=== PATIENT | male | born 1935 | race Caucasian/White ===

== ENCOUNTER 2017-07-13 21:49 | Emergency (ER) | payer BC ==
[2017-07-13 22:01] VITALS: BP 137/80
--- NOTE | 2017-07-13 22:02 | UC ---
Skin Complaint HPI - HPI Summary HPI Summary: sore area at the back of the head / scalp no rash, no lesions no hx of trauma - History of Current Complaint Chief Complaint: UCHeadInjury Time Seen by Provider: 07/13/17 21:50 Stated Complaint: PAIN IN BACK OF HEAD Hx Obtained From: Patient Onset/Duration: Gradual Onset, Lasting Days - 2, Still Present Timing: Constant Onset Severity: Moderate Current Severity: Moderate Location: Discrete - left posterior scalp Character: Pain Aggravating Factor(s): Touch Alleviating Factor(s): Nothing Associated Signs & Symptoms: Positive: Negative - Allergy/Home Medications Allergies/Adverse Reactions: Allergies Allergy/AdvReac Type Severity Reaction Status Date / Time Penicillins Allergy Severe Constipatio Verified 07/13/17 22:01 n Levofloxacin [From Levaquin] Allergy Itching Verified 07/13/17 22:01 Home Medications: Home Medications Ramipril CAP* [Altace CAP*] 5 mg PO DAILY 07/13/17 [History Confirmed 07/13/17] Review of Systems Constitutional: Negative Skin: Negative Eyes: Negative ENT: Negative Respiratory: Negative Cardiovascular: Negative Gastrointestinal: Negative Genitourinary: Negative Motor: Negative Neurovascular: Negative Musculoskeletal: Negative Neurological: Negative Psychological: Negative Is Patient Immunocompromised?: No All Other Systems Reviewed And Are Negative: Yes PMH/Surg Hx/FS Hx/Imm Hx Cardiovascular History: Hypertension - Surgical History Surgical History: Yes Surgery Procedure, Year, and Place: hernia repair 1956. 2013 LEFT SHOULDER ROTATOR REPAIR. 02/2016 [facility],RIGHT STENT [facility] - Family History Known Family History: Positive: None Negative: Diabetes - Social History Alcohol Use: None Substance Use Type: None Smoking Status (MU): Former Smoker Type: Cigarettes Have You Smoked in the Last Year: No When Did the Patient Quit Smoking/Using Tobacco: 1998 - Immunization History Most Recent Influenza Vaccination: no Physical Exam Triage Information Reviewed: Yes Appearance: Well-Appearing, No Pain Distress, Well-Nourished Vital Signs: Initial Vital Signs Temp 96.9 F 07/13/17 21:56 Pulse 57 07/13/17 21:56 Resp 16 07/13/17 21:56 BP 137/80 07/13/17 21:56 Pulse Ox 99 07/13/17 21:56 Vital Signs Reviewed: Yes Eyes: Positive: Conjunctiva Clear ENT: Positive: Normal ENT inspection, Hearing grossly normal, Pharynx normal Neck exam: Normal Neck: Positive: Supple, Nontender, No Lymphadenopathy Respiratory: Positive: Chest non-tender, Lungs clear, Normal breath sounds Cardiovascular: Positive: RRR, No Murmur, Pulses Normal Abdominal Exam: Normal Skin Exam: Normal Skin: Positive: Other - scalp: no rash, no lesion, mild tenderness left posterior scalp Course/Dx - Diagnoses Provider Diagnoses: scalp pain Discharge - Discharge Plan Condition: Stable Disposition: HOME Referrals: Kenna Almonte MD [Primary Care Provider] - If Needed Additional Instructions: sore area at the back of the head / scalp no rash, no lesions no hx of trauma cont. to monitor the area follow up if and sores, lesions, rash
== END 2017-07-13 22:12 | disposition home or self-care (01) ==
LOC: UCCORT 21:49
DX: L98.9 Disorder of the skin and subcutaneous tissue, unspecified (principal); Z88.0 Allergy status to penicillin; Z88.8 Allergy status to other drugs, medicaments and biological substances; I10 Essential (primary) hypertension; Z87.891 Personal history of nicotine dependence
CPT/HCPCS: 99212; G0463

== ENCOUNTER 2017-10-23 17:38 | Emergency (ER) | payer BC ==
[2017-10-23 18:44] VITALS: BP 122/69
--- NOTE | 2017-10-23 18:48 | UC ---
Respiratory Complaint HPI - HPI Summary HPI Summary: 82 year old male presents with complains of cough x 1 month. - History of Current Complaint Chief Complaint: UCRespiratory Stated Complaint: COUGH Time Seen by Provider: 10/23/17 18:47 Hx Obtained From: Patient Onset/Duration: Sudden Onset Severity Initially: Moderate Severity Currently: Moderate Pain Scale Used: 0-10 Numeric - 5 Character: Cough: Nonproductive Associated Signs And Symptoms: Positive: Negative - Allergies/Home Medications Allergies/Adverse Reactions: Allergies Allergy/AdvReac Type Severity Reaction Status Date / Time Penicillins Allergy Severe Constipatio Verified 10/23/17 18:44 n Levofloxacin [From Levaquin] Allergy Itching Verified 10/23/17 18:44 Home Medications: Home Medications Arginine [[id number]] 500 mg PO DAILY 10/23/17 [History Confirmed 10/23/17] Edex 40 mg PO DAILY PRN 10/23/17 [History] Longevity Soft Gels 1 tab PO DAILY 10/23/17 [History Confirmed 10/23/17] Misc Natural Products [Prostate Health] 1 tab PO DAILY 10/23/17 [History Confirmed 10/23/17] Potassium Citrate (Alkalinizer [Potassium Citrate ER] 10 meq PO TID 10/23/17 [ History Confirmed 10/23/17] Prune Regularity Complex 1 tbsp PO DAILY 10/23/17 [History Confirmed 10/23/17] PMH/Surg Hx/FS Hx/Imm Hx Previously Healthy: Yes - Surgical History Surgical History: Yes Surgery Procedure, Year, and Place: hernia repair 1956. 2013 LEFT SHOULDER ROTATOR REPAIR. 02/2016 [facility]RIGHT STENT [facility] - Family History Known Family History: Positive: None Negative: Diabetes - Social History Alcohol Use: None Substance Use Type: None Smoking Status (MU): Former Smoker Type: Cigarettes Have You Smoked in the Last Year: No When Did the Patient Quit Smoking/Using Tobacco: 1998 - Immunization History Most Recent Influenza Vaccination: NOT UTD Most Recent Pneumonia Vaccination: Review of Systems Constitutional: Negative Skin: Negative Eyes: Negative ENT: Sore Throat, Nasal Discharge, Sinus Congestion, Sinus Pain/Tenderness Respiratory: Cough Cardiovascular: Negative Gastrointestinal: Negative Genitourinary: Negative Motor: Negative Neurovascular: Negative Musculoskeletal: Negative Neurological: Negative Psychological: Negative All Other Systems Reviewed And Are Negative: Yes Physical Exam Triage Information Reviewed: Yes Vital Signs: Initial Vital Signs Temp 36.9 C 10/23/17 18:37 Pulse 80 10/23/17 18:37 Resp 16 10/23/17 18:37 BP 122/69 10/23/17 18:37 Pulse Ox 97 10/23/17 18:37 Vital Signs Reviewed: Yes Eye Exam: Normal ENT: Positive: Pharyngeal erythema, Nasal congestion, Nasal drainage, Sinus tenderness Dental Exam: Normal Neck exam: Normal Neck: Positive: 1 Respiratory: Positive: Rhonchi, Wheezing Cardiovascular Exam: Normal Abdominal Exam: Normal Musculoskeletal Exam: Normal Neurological Exam: Normal Psychological Exam: Normal Skin Exam: Normal Diagnostic Evaluation - Laboratory O2 Sat by Pulse Oximetry: 97 Respiratory Course/Dx - Differential Dx/Diagnosis Provider Diagnoses: pneumonia Discharge - Discharge Plan Condition: Stable Disposition: HOME Prescriptions: Albuterol HFA INHALER* [Ventolin HFA Inhaler*] 1 puff INH Q6H PRN #1 mdi PRN Reason: Wheezing Azithromyxin YOLIS (NF) [Z-Yolis (Zithromax) 250 mg tabs #6] 2 tab PO .TODAY, THEN 1 DAILY #6 tab Guaifenesin-Codeine [Cheratussin AC] 1 teasp PO BEDTIME PRN #120 ml MDD 5 ML PRN Reason: Cough LoraTADine TAB(NF) [Claritin 10 MG TAB(NF)] 10 mg PO DAILY #30 tab Patient Education Materials: Pneumonia (ED) Forms: *Work Release Referrals: Kenna Almonte MD [Primary Care Provider] -
--- NOTE | 2017-10-23 19:33 | RAD ---
INDICATION: Cough. COMPARISON: Comparison is made with a prior chest x-ray study study from August 26, 2005. TECHNIQUE: Dual-energy PA and lateral views of the chest were obtained. FINDINGS: The heart is within normal limits in size. The lungs are slightly underinflated. There are small infiltrates at both lung bases. The infiltrate on the left side is mainly linear. No pleural effusion is seen. IMPRESSION: SMALL BIBASILAR INFILTRATES.
[2017-10-23] MEDS ORDERED: Azithromycin TAB* 250 MG PO ONE (19:41)
[2017-10-23] MEDS ORDERED: LoraTADine TAB(NF) 10 MG TAB (AUTOSUB to CETIRIZINE) PO ONE (19:42)
[2017-10-23] MEDS ORDERED: guaiFENesin/CODIEN 100MG-10MG* 5 ML UDC PO ONE (19:42)
[2017-10-23] MEDS ORDERED: Albuterol HFA INHALER* 8 gm MDI INH ONE (19:51)
== END 2017-10-23 19:59 | disposition home or self-care (01) ==
LOC: UCCORT 17:38
DX: J18.9 Pneumonia, unspecified organism (principal); Z88.0 Allergy status to penicillin; Z88.1 Allergy status to other antibiotic agents; Z87.891 Personal history of nicotine dependence
CPT/HCPCS: 71046; 99213; A9270-GY; G0463

== ENCOUNTER 2018-01-03 17:26 | Emergency (ER) | payer BC ==
[2018-01-03 18:39] VITALS: BP 135/65
--- NOTE | 2018-01-03 18:53 | ED ---
Adult Trauma - HPI Summary HPI Summary: 82 yr old fall on buttocks two weeks ago. Has persistent pain in the left upper pelvis, SI area when goes from sitting to standing. He denies LOC or other injuries. No other complaints. - History of Current Complaint Chief Complaint: UCGeneralIllness Stated Complaint: LOW BACK/PELVIC PAIN Time Seen by Provider: 01/03/18 18:30 Pain Intensity: 0 - Additional Pertinent History Primary Care Physician: EDILSON - Allergy/Home Medications Allergies/Adverse Reactions: Allergies Allergy/AdvReac Type Severity Reaction Status Date / Time Penicillins Allergy Severe Constipatio Verified 01/03/18 18:25 n levofloxacin [From Levaquin] Allergy Itching Verified 01/03/18 18:25 PMH/Surg Hx/FS Hx/Imm Hx Endocrine/Hematology History: Denies: Hx Diabetes, Hx Thyroid Disease Cardiovascular History: Reports: Hx Hypertension Respiratory History: Reports: Hx Sleep Apnea Denies: Hx Asthma, Hx Chronic Obstructive Pulmonary Disease (COPD) GI History: Denies: Hx Ulcer History: Reports: Hx Kidney Stones - right side Musculoskeletal History: Reports: Hx Arthritis - NECK/ SHOULDERS, Other Musculoskeletal History - SPINAL STENOSIS Sensory History: Reports: Hx Contacts or Glasses - READING, Hx Hearing Aid - BILAT Opthamlomology History: Reports: Hx Contacts or Glasses - READING Neurological History: Reports: Hx Migraine - INFREQ, ON MEDS - Surgical History Surgery Procedure, Year, and Place: hernia repair 1956. 2013 LEFT SHOULDER ROTATOR REPAIR. 02/2016 [facility]RIGHT STENT [facility] Hx Anesthesia Reactions: No Infectious Disease History: No Infectious Disease History: Denies: Hx Hepatitis, Hx Human Immunodeficiency Virus (HIV), Traveled Outside the [place] in Last 30 Days - Family History Known Family History: Positive: None Negative: Diabetes - Social History Alcohol Use: None Substance Use Type: Reports: None Smoking Status (MU): Former Smoker Type: Cigarettes Have You Smoked in the Last Year: No Review of Systems Constitutional: Negative Positive: Other - pain left pelvis posteriorly. Negative: Headache, Weakness, Numbness All Other Systems Reviewed And Are Negative: Yes Physical Exam - Summary Physical Exam Summary: Palpation of the CTL spine non tender. He has some tenderness over the sacral area/SI area on the left. No bruise. No STS. Triage Information Reviewed: Yes Vital Signs On Initial Exam: Initial Vitals Temp Pulse Resp BP Pulse Ox 98.3 F 63 16 135/65 98 18 18:27 01/03/18 18:27 01/03/18 18:27 01/03/18 18:27 01/03/18 18:27 Vital Signs Reviewed: Yes Appearance: Positive: Well-Appearing, No Pain Distress Skin: Positive: Warm, Skin Color Reflects Adequate Perfusion, Other - back side visualized and no bruise over buttock or back area. Head/Face: Positive: Normal Head/Face Inspection Eyes: Positive: EOMI ENT: Positive: Normal ENT inspection Neck: Positive: Supple Respiratory/Lung Sounds: Positive: Other - normal effort Abdomen Description: Negative: CVA Tenderness (R), CVA Tenderness (L), Distended Musculoskeletal: Positive: Normal, Strength/ROM Intact, Other - tender over the left SI area and sacral/ Pelvis area. Neurological: Positive: Sensory/Motor Intact, Alert, Oriented to Person Place, Time, CN Intact II-III, Normal Gait, Speech Normal Psychiatric: Positive: Normal - Lawrence Coma Scale Best Eye Response: 4 - Spontaneous Best Motor Response: 6 - Obeys Commands Best Verbal Response: 5 - Oriented Coma Scale Total: 15 Diagnostics - Vital Signs Vital Signs Temp Pulse Resp BP Pulse Ox 01/03/18 18:27 98.3 F 63 16 135/65 98 - Laboratory Lab Statement: Any lab studies that have been ordered have been reviewed, and results considered in the medical decision making process. - Radiology pelvis and Sacral Xray Interpretation: No Acute Changes Radiology Interpretation Completed By: Radiologist Adult Trauma Course/Dx - Course Course Of Treatment: 82 yr old male who walks very well. Plan dc home. FU with ortho for further eval as needed. - Diagnoses Provider Diagnoses: Contusion of pelvis Discharge - Discharge Plan Condition: Good Disposition: HOME Patient Education Materials: Contusion in Adults (ED) Referrals: Kenna Almonte MD [Primary Care Provider] - 2 Days Vidal Anderson MD [Medical Doctor] - 2 Days Additional Instructions: Be sure to follow up with your primary doctor and with orthopedic surgery if you have continued pain. You may need a bone scan if you have persistent pain to rule out a small break not seen on xray.
--- NOTE | 2018-01-03 19:17 | RAD ---
INDICATION: Fall 2 weeks ago. COMPARISON: [facility] April 13, 2017 TECHNIQUE: AP and lateral views of the coccyx and sacrum were obtained FINDINGS: There is no acute bony change. 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 The SI joints and symphysis are intact IMPRESSION: NO ACUTE BONY FINDINGS. OSTEOARTHRITIS LOWER LUMBAR SPINE.
--- NOTE | 2018-01-03 19:19 | RAD ---
INDICATION: Pelvic pain COMPARISON: [facility] April 13, 2017 TECHNIQUE: A single AP view of the pelvis is submitted. FINDINGS: Osseous structures: There is no acute osseous change. The hips articulate normally. There is osteoarthritis of the lower lumbar spine SI joints and symphysis: Intact Soft tissues: No soft tissue abnormalities. Other: None IMPRESSION: NO ACUTE BONY FINDINGS.
== END 2018-01-03 19:32 | disposition home or self-care (01) ==
LOC: UCCORT 17:26
DX: S30.0XXA Contusion of lower back and pelvis, initial encounter (principal); W19.XXXA Unspecified fall, initial encounter; Y93.9 Activity, unspecified; Y92.9 Unspecified place or not applicable; Z88.1 Allergy status to other antibiotic agents; Z88.0 Allergy status to penicillin; Z87.891 Personal history of nicotine dependence
CPT/HCPCS: 72170; 72220; 99211; G0463

== ENCOUNTER 2019-11-12 09:55 | Emergency (ER) | payer BC ==
--- OUTSIDE RECORDS SUMMARY | 2019-11-12 10:44 | XMS REPORT | Continuity of Care Document ---
:1935 External Reference #:[id number] Author Name Kenna Almonte MD Address [address] [place] [address] Care Team Providers Name Role Phone [facility] X-Ray Care Team Information Ore Tester [phone] Gage Dickey - Cardiovascular Care Team Information Ore Tester Disease Travon Handy DR - Ophthalmology Care Team Information Ore Tester [phone] Renard Villatoro Care Team Information Ore Tester [phone] Farzana Dietz - Gastroenterology Care Team Information Ore Tester [phone] Problems Active Problems Provider Date Refractory migraine without aura Kenna Almonte MD Onset: 08/05/2010 Obstructive sleep apnea syndrome Kenna Almonte MD Onset: 08/05/2010 Impotence of organic origin Kenna Almonte MD Onset: 08/05/2010 Aneurysm of thoracic aorta Kenna Almonte MD Onset: 08/16/2015 Aortic valve disorder Kenna Almonte MD Onset: 01/31/2016 Essential hypertension Kenna Almonte MD Onset: 10/16/2016 Right bundle branch block Kenna Almonte MD Onset: 05/12/2017 Chronic kidney disease stage 3 Kenna Almonte MD Onset: 06/22/2018 Hypokalemia Kenna Almonte MD Onset: 08/16/2018 Social History Type Date Description Comments Sex Unknown Tobacco Use Start: Unknown End: Unknown Former Cigarette Smoker Smoking Status Reviewed: 12/20/18 Former Cigarette Smoker ETOH Use Denies alcohol use Tobacco Use Start: Unknown End: Unknown Patient is a former smoker Allergies, Adverse Reactions, Alerts Active Allergies Reaction Severity Comments Date Penicillin 08/05/2010 Levofloxacin iv use itching 05/12/2017 Medications Active Medications SIG Qnty Indications Ordering Provider Date Acetaminophen 1-2 by mouth otc M25.531 Kenna Almonte, 10/03/2019 500mg every 6 hrs. as MD Tablets needed for arthritis pain M25.552 M25.551 Topiramate 1 by mouth twice a 180tabs G43.019 Kenna Almonte, 08/16/2018 50mg Tablets day Edex Use Three Times A 3units N52.9 Kenna Almonte, 04/25/2018 40mcg Kit Week If Needed Ramipril 1 by mouth every 90caps I10 Kenna Almonte, 09/16/2016 5mg Capsules day Cpap Supplies including mask, G47.33 Kenna Almonet, 09/02/2016 tubing, headgear and filters. Fish Oil Kenna Almonte, 08/05/2010 Oil Glucosamine/Chondroiti 1 po qd Kenna Almonte, 08/05/2010 n Maximum Strength MD Capsules Aspirin Adult Low 1 by mouth every 30Tabs eKnna Almonte, 08/05/2010 Strength day 81mg Tablets Sumatriptan Succinate 1 every day as 9tabs G43.019 Kenna Almonte, 2009 needed migraine 100mg Tablets repeat 2 hours as needed Potassium Citrate ER 1 by mouth tHREE a E87.6 Srinivasan Richmond, day 10Meq (1080 mg) Tablets ER L-Arginine 1 cap PO daily Unknown 500mg Capsules Longevity 1 cap PO daily Unknown Capsules Multivitamin Men 50+ 1 by mouth daily Unknown Men with meal 50+ Tablets History Medications Clotrimazole wash with mild 28gm B37.42 Amy Sharma, 05/02/2019 - Anti-Fungal soap and blot 07/03/2019 1% Cream dry then apply cream to penile rash twice daily for up to 2 weeks Immunizations CPT Code Status Date Vaccine Lot # [id number] Given 10/12/2014 Zoster (Zostavax) [id number] Given 04/02/2009 Tdap (Adacel) Ages 7 And Above Only [id number] Refused 07/04/2019 Flu Vaccine NOS 67966 Refused 06/22/2018 Afluria Or Fluvirin Flu Vac Intramuscular 98929 Refused 12/16/2017 Afluria Or Fluvirin Flu Vac Intramuscular Q2039 Refused 11/17/2016 Flu Vaccine NOS 65428 Refused 01/31/2016 Prevnar 13 Pneumococal Conjugate Vaccine 30799 Refused 03/20/2014 Pneumococcal 23 Immunization Adult Or Immunosuppressed Patient 89695 Refused 11/07/2012 Pneumococcal 23 Immunization Adult Or Immunosuppressed Patient 96960 Refused 11/07/2012 Afluria Or Fluvirin Flu Vac Intramuscular Vital Signs Date Vital Result Comment 10/03/2019 10:41am Weight 175.00 lb Heart Rate 78 /min BP Systolic 130 mmHg BP Diastolic 74 mmHg Respiratory Rate 18 /min Height 69.50 inches 5'9.50" O2 % BldC Oximetry 98 % Ra BMI (Body Mass Index) 25.5 kg/m2 07/04/2019 11:20am Weight 174.00 lb Heart Rate 70 /min BP Systolic 134 mmHg BP Diastolic 82 mmHg Respiratory Rate 16 /min Height 69.50 inches 5'9.50" O2 % BldC Oximetry 94 % Ra BMI (Body Mass Index) 25.3 kg/m2 Results Test Acquired Date Facility Test Result H/L Range Note Basic (BMP) 06/30/2019 [facility] Sodium 144 mmol/L 135-146 1, 2 Potassium 4.3 mmol/L 3.5-5.2 Chloride# 112 mmol/L High 97-110 3 Carbon Dioxide 27 mmol/L 24-34 Glucose 84 mg/dL 70-105 BUN 25 mg/dL 6-26 Creatinine 1.3 mg/dL 0.5-1.4 Calcium 9.1 mg/dL 8.5-10.5 4 Female Egfr 38 Low >60 5 Male Egfr 50 Low >60 6 Anion Gap 5 mmol/L 5-15 7 Ua RFX Micro & 04/20/2019 [facility] Urine Color YELLOW Yellow 8 Culture II (315)- - Urine Clarity CLEAR Clear Urine Glucose - Dipstick NEGATIVE mg/dL Negative Urine Bilirubin - Dipstick NEGATIVE Negative Urine Ketone NEGATIVE mg/dL Negative Urine Specific Scribner 1.015 Normal 1.010-1.030 Urine Blood NEGATIVE Negative Urine PH 7.5 Normal 6.5-7.5 Urine Protein - Dipstick NEGATIVE mg/dL Negative Urine Urobilinogen - Dipstick 0.2 E.U./dL Normal 0.2-1.0 Urine Nitrite - Dipstick NEGATIVE Negative Urine Leuk Esterase NEGATIVE Negative Source: URINE, CLEAN CAT <SEE NOTE> 9 CBS W/Automated 04/20/2019 [facility] White Blood 5.3 K/ uL Normal 3.4-10.5 Diff (315)- - Count Red Blood Count 4.44 M/uL Normal 4.20-5.80 Hemoglobin 14.1 gm/dL Normal 12.8-17.0 Hematocrit 40.9 % Normal 38.0-48.0 Mean Cell Volume 92.1 fl Normal 80.0-96.0 Mean Corpuscular HGB 31.8 pg Normal 27.0-33.0 Mean Corpuscular HGB Conc 34.5 g/dL Normal 31.7-36.0 Platelet Count 143 K/uL Low 155-360 Red Cell Distri Width SD 49.1 fl Normal 36-51 Red Cell Distri Width %CV 14.4 % Normal 11.6-15.8 Mean Platelet Volume 11.3 fl High 6.6-10.6 Neut% 51.2 % Normal 33.0-73.0 Lymph % 31.7 % Normal 20.0-42.0 Lanier % 12.5 % High 0.0-10.0 Eo% 4.2 % Normal 0.0-6.6 Bas% 0.2 % Normal 0.0-1.1 Immature Grans 0.2 % Normal 0.0-5.0 NRBC % 0.0 /100WBC < 10/ 100 WBC Neut# 2.69 K/uL Normal 1.8-7.0 Lymph # 1.67 K/uL Normal 1.0-4.0 Lanier # 0.66 K/uL Normal 0.0-0.8 Eos # 0.22 K/uL Normal 0.0-0.5 Baso # 0.01 K/uL Normal 0.0-0.1 Immature Grans Absolute 0.01 K/uL NRBC # 0.00 K/uL Lactic Acid 04/20/2019 [facility] Lactic Acid 1.0 mmol/L Normal 0.4-1.9 (315)- - Lab Reflex >2.0 for Sepsis? Y 1 6 mos 2 Updated reference range on new analyzer 3 Updated reference range on new analyzer 4 Updated reference range 02-15-2019 5 Concerning GFR Guidelines for Americans: Normal function or mild renal disease, if clinically at risk: >/= 60 mL/min Moderately decreased: 30-59 Severely decreased: 15-29 Renal failure: <15 There is reduced accuracy above 60ml/min/1.73 m squared, but the numeric value may be clinically useful in the near 60 range 6 Concerning GFR Guidelines: Normal function or mild renal disease, if clinically at risk: >/= 60 mL/min Moderately decreased: 30-59 Severely decreased: 15-29 Renal failure: <15 There is reduced accuracy above 60ml/min/1.73 m squared, but the numeric value may be clinically useful in the near 60 range Glomerular Filtration Rate (GFR) is estimated based on the CKD-EPI equation, which assumes a steady state for creatinine as recommended by the National Kidney Disease Education Program in conjunction with the National Institutes of Health and the National Kidney Foundation. Clinical conditions in which it may be necessary to measure GFR by using clearance methods include extremes of age and body size, severe malnutrition or obesity, diseases of skeletal muscle, paraplegia or quadriplegia, vegetarian diet, rapidly changing kidney function, and calculation of the dose of potentially toxic drugs that are excreted by the kidneys. 7 Updated Reference Range -2017 8 LOW BLOOD PRESSURE, LIGHTHEADED, BLURRED VISION 9 URINE, CLEAN CATCH Procedures Date Code Description Status 10/18/2009 [id number] Colonoscopy Completed Medical Devices Description No Information Available Encounters Type Date Location Provider Dx Diagnosis Office Visit 07/04/2019 [facility] Kenna Almonte MD K40.90 Unil inguinal hernia , 11:00a w/o obst or gangr, not spcf as recur G47.33 Obstructive sleep apnea (adult) (pediatric) N52.9 Male erectile dysfunction, unspecified I71.2 Thoracic aortic aneurysm, without rupture I35.8 Other nonrheumatic aortic valve disorders I10 Essential (primary) hypertension I45.10 Unspecified RIGHT bundle-branch block E87.6 Hypokalemia N18.3 Chronic kidney disease, stage 3 (moderate) G43.019 Migraine w/o aura, intractable, without status migrainosus Z68.25 Body mass index (BMI) 25.0-25.9, adult Office Visit 05/02/2019 3:45p [facility] Amy Sharma MD B37.42 Candidal balanitis Assessments Date Code Description Provider 10/03/2019 M25.551 Pain in RIGHT hip Kenna Almonte MD 10/03/2019 M25.552 Pain in LEFT hip Kenna Almonte MD 10/03/2019 M25.531 Pain in RIGHT wrist Kenna Almonte MD 10/03/2019 N18.3 Chronic kidney disease, stage 3 (moderate) Kenna Almonte MD 10/03/2019 Z68.25 Body mass index (BMI) 25.0-25.9, adult Kenna Almonte MD 07/04/2019 K40.90 Unilateral inguinal hernia, without Kenna Almonte MD obstruction or gangrene, not specified as recurrent 07/04/2019 G47.33 Obstructive sleep apnea syndrome Kenna Almonte MD 07/04/2019 N52.9 Male erectile dysfunction, unspecified Kenna Almonte MD 07/04/2019 I71.2 Thoracic aortic aneurysm, without rupture Kenna Almonte MD 07/04/2019 I35.8 Other nonrheumatic aortic valve disorders Kenna Almonte MD 07/04/2019 I10 Essential (primary) hypertension Kenna Almonte MD 07/04/2019 I45.10 Unspecified RIGHT bundle-branch block Kenna Almonte MD 07/04/2019 E87.6 Hypokalemia Kenna Almonte MD 07/04/2019 N18.3 Chronic kidney disease, stage 3 (moderate) Kenna Almonte MD 07/04/2019 G43.019 Migraine without aura, intractable, without Kenna Almonte MD status migrainos 07/04/2019 Z68.25 Body mass index (BMI) 25.0-25.9, adult Kenna Almonte MD 06/30/2019 N18.3 Chronic kidney disease, stage 3 (moderate) Kenna Almonte MD 06/30/2019 N18.3 Chronic kidney disease, stage 3 (moderate) Schedule, Laboratory 06/30/2019 N18.3 Chronic kidney disease, stage 3 (moderate) [facility] 05/02/2019 B37.42 Jessical Amy Jacobo MD Plan of Treatment Future Appointment(s):01/02/2020 9:45 am - Kenna Almonte MD at [facility]10/03/2019 - Kenna Almonte, MDM25.551 Pain in RIGHT hipNew Medication:Acetaminophen 500 mg - 1-2 by mouth every 6 hrs. as needed for arthritis painNew Xrays:Hips, Bilateral With Pelvis, 3-4 Views, Scheduled: 10/04/19New Orders:Physical Therapy , Ordered: 10/03/19Comments:We will order x-ray on this patient. The patient will be referred to Physical Therapy at [facility] to evaluation and treatment of right hip pain. He was also given a prescription to take acetaminophen arthritis pain MMD 3000 mg. Education given on medications, administration, and side effects. avoid NSAIDS due to renal function. please call if this is not helping.Follow up:X-ray today or soon Follow up as scheduled.M25.552 Pain in LEFT hipNew Medication:Acetaminophen 500 mg - 1-2 by mouth every 6 hrs. as needed for arthritis painNew Xrays:Hips, Bilateral With Pelvis, 3-4 Views, Scheduled: 10/04/19New Orders:Physical Therapy, Ordered: Comments:We will order x-ray on this patient. The patient will be referred to Physical Therapy at [facility] to evaluation and treatment of left hip pain. He was also given a prescription to take acetaminophen arthritis pain as directed by physician. Education given on medications, administration, and side effects.M25.531 Pain in RIGHT wristNew Medication: Acetaminophen 500 mg - 1-2 by mouth every 6 hrs. as needed for arthritis painNew Xrays:Wrist, Two Views, RT Limited, Scheduled: 10/04/19Hips, Bilateral With Pelvis, 3-4 Views, Scheduled: 10/04/19New Orders:Physical Therapy, Ordered : 10/03/19Comments:We will order x-ray on this patient. The patient will be referred to Physical Therapy at [facility] to evaluation and treatment of right wrist pain.N18.3 Chronic kidney disease, stage 3 (moderate)Comments:He was advised not to use ibuprofen, Aleve and Celebrex.Z68.25 Body mass index (BMI ) 25.0-25.9, adultComments:You are in your normal body weight range. The goal BMI is between 23 and 30 for people age 65 and older. Functional Status Functional Condition Comment Date Status Independent with all ADL's Active Hearing Aid in Both ears Active Independent with all IADL's Active Complete lower and upper and lower dentures Active Mental Status Description No Information Available Referrals Refer to Dr Perez for Referral Status Appt Date Farzana Dietz patient requests referral for screening Scheduled 11/22/[address] TO REVIEW IN ORDER TO GET AN APPT SCHEDULED/[facility]/09/13/19- PT NOTIFIED AND APPT TIME AND DATE MAILED TO HIM [address] [place] [address] [phone]
--- OUTSIDE RECORDS SUMMARY | 2019-11-12 10:44 | XMS REPORT | Continuity of Care Document ---
:1935 External Reference #:[id number] Author Name Pam Lindsey, EFREM Address [address] [place] [address] Care Team Providers Name Role Phone [facility] X-Ray Care Team Information Payroll Auditor [phone] Gage Dickey - Cardiovascular Care Team Information Payroll Auditor Disease Travon Handy DR - Ophthalmology Care Team Information Payroll Auditor Renard Villatoro Care Team Information Payroll Auditor [phone] Farzana Dietz - Gastroenterology Care Team Information Payroll Auditor Fabi Gillespie [employer] Care Team Information Payroll Auditor [phone] Problems Active Problems Provider Date Refractory migraine [...] Medications Active Medications SIG Qnty Indications Ordering Date Provider Methylprednisolone dose pack per 21units M16.0 [place], 4mg TBPK instructions in Ras, DO 0 package Acetaminophen 1-2 by mouth otc M25.531 Gage 500mg Tablets every 6 hrs. as MD Kenna 9 needed for arthritis pain M25.552 M25.551 Topiramate 1 by mouth twice a 180tabs G43.019 Kenna Almonte, 08/16/2018 50mg Tablets day Ramipril 1 by mouth every 90caps I10 Kenna Almonte, 09/16/2016 5mg Capsules day Cpap Supplies including mask, G47.33 Kenna Almonte, 09/02/2016 tubing, headgear and filters. Fish Oil Kenna Almonte, 08/05/2010 Oil Glucosamine/Chondroiti 1 po qd Kenna Almonte, 08/05/2010 n Maximum Strength MD Capsules Aspirin Adult Low 1 by mouth every 30Tabs Kenna Almonte, 08/05/2010 Strength day 81mg Tablets Sumatriptan Succinate 1 every day as 9tabs G43.019 Kenna Almonte, 2009 needed migraine 100mg Tablets repeat 2 hours as needed Potassium Citrate ER 1 by mouth tHREE a E87.6 Srinivasan Richmond, day 10Meq (1080 mg) Tablets ER Longevity 1 cap PO daily Unknown Capsules Multivitamin Men 50+ 1 by mouth daily Unknown Men with meal 50+ Tablets Immunizations CPT Code Status Date Vaccine Lot # [id number] Given 10/12/2014 Zoster (Zostavax) [id number] Given 04/02/2009 Tdap (Adacel) Ages 7 And Above Only Q2039 Refused 07/04/2019 Flu Vaccine NOS 02988 Refused 06/22/2018 Afluria Or Fluvirin Flu Vac Intramuscular 10235 Refused 12/16/2017 Afluria Or Fluvirin Flu Vac Intramuscular Q2039 Refused 11/17/2016 Flu Vaccine NOS 05398 Refused 01/31/2016 Prevnar 13 Pneumococal Conjugate Vaccine 05727 Refused 03/20/2014 Pneumococcal 23 Immunization Adult Or Immunosuppressed Patient 13734 Refused 11/07/2012 Pneumococcal 23 Immunization Adult Or Immunosuppressed Patient 89300 Refused 11/07/2012 Afluria Or Fluvirin Flu Vac Intramuscular Vital Signs Date Vital Result Comment 11/02/2019 1:45pm Weight 16.00 lb Heart Rate 70 /min BP Systolic 140 mmHg BP Diastolic 74 mmHg Respiratory Rate 18 /min Height 69.50 inches 5'9.50" BMI (Body Mass Index) 2.3 kg/m2 10/03/2019 10:41am Weight 175.00 lb Heart Rate 78 /min BP Systolic 130 mmHg BP Diastolic 74 mmHg Respiratory Rate 18 /min Height 69.50 inches 5'9.50" O2 % BldC Oximetry 98 % Ra BMI (Body Mass Index) 25.5 kg/m2 Results Test Acquired Date Facility Test Result H/L Range Note Laboratory test finding 11/02/2019 [facility] <pending> CRP (C-Reactive) <pending> Uric Acid[facility] <pending> [facility] Antibody-[facility] <pending> Laboratory test 11/02/2019 [facility] Rheumatoid Factor <pending> finding Quant Basic (BMP) 06/30/2019 [facility] Sodium 144 mmol/L 135-146 1, 2 Potassium 4.3 mmol/L 3.5-5.2 Chloride# 112 mmol/L High 97-110 3 Carbon Dioxide 27 mmol/L 24-34 Glucose 84 mg/dL 70-105 BUN 25 mg/dL 6-26 Creatinine 1.3 mg/dL 0.5-1.4 Calcium 9.1 mg/dL 8.5-10.5 4 Female Egfr 38 Low >60 5 Male Egfr 50 Low >60 6 Anion Gap 5 mmol/L 5-15 7 1 6 mos 2 Updated reference range [...] by the kidneys. 7 Updated Reference Range 2-2018 Procedures Date Code Description Status 10/18/2009 [id number] Colonoscopy Completed Medical Devices Description No Information Available Encounters Type Date Location Provider Dx Diagnosis Office Visit 10/03/2019 10:45a [facility] Kenna Almonte MD M25.551 Pain in RIGHT hip M25.552 Pain in LEFT hip M25.531 Pain in RIGHT wrist N18.3 Chronic kidney disease, stage 3 (moderate) Z68.25 Body mass index (BMI) 25.0-25.9, adult Office Visit 07/04/2019 11:00a [facility] Kenna Almonte MD K40.90 Unil inguinal hernia, w/o obst or gangr, not spcf as [...] Z68.25 Body mass index (BMI) 25.0-25.9, adult Assessments Date Code Description Provider 11/02/2019 M16.0 Bilateral primary osteoarthritis of hip Pam Lindsey PA 11/02/2019 M25.531 Pain in RIGHT wrist Pam Lindsey PA 11/02/2019 Z68.1 Body mass index (BMI) 19.9 or less, adult Pam Lindsey PA 11/02/2019 M16.0 Bilateral primary osteoarthritis of hip Schedule, Laboratory 10/03/2019 M25.551 Pain in RIGHT hip Kenna [...] N18.3 Chronic kidney disease, stage 3 (moderate) [facility] Plan of Treatment Future Appointment(s):01/02/2020 9:45 am - Kenna Almonte MD at [facility]11/02/2019 - Pam Lindsey PAM16.0 Bilateral primary osteoarthritis of hipNew Medication :Methylprednisolone 4 mg - dose pack per instructions in packageComments:Acute flare of BL hip and R wrist painX-rays reassuringWill order BW for further evalWill treat withmedrol Can continue tylenolFollow up:PrnM25.531 Pain in RIGHT wristComments:Plan as upndrN69.1 Body mass index (BMI) 19.9 or less, adult Functional Status Functional Condition Comment Date Status Independent with all ADL's Active Hearing Aid in Both ears Active Independent with all IADL's Active Complete lower and upper and lower dentures Active Mental Status Description No Information Available Referrals Refer to Reason for Referral Status Appt Date Farzana Dietz patient requests referral for screening Scheduled 11/22/2019 colonoscopy FORMS FAXED FOR TO REVIEW IN ORDER TO GET AN APPT SCHEDULED/[facility]/09/13/19- PT NOTIFIED AND APPT TIME AND DATE MAILED TO HIM [address] [place] [address] [phone]
[2019-11-12 11:01] VITALS: BP 105/59
--- NOTE | 2019-11-12 11:10 | UC ---
UC General HPI - HPI Summary HPI Summary: 84 year old male presents with complaint of bilateral hip pain, right shoulder and right wrist pain since end of September. He has been evaluated by his PCP twice for this, underwent x-rays and rheumatologic lab testing and given Medro- Dose Pk. He notes essential resolution of his joint pains while on the methylprednisolone with rapid return of sx after discontinuation. - History of Current Complaint Chief Complaint: UCLowerExtremity Stated Complaint: BILATERAL HIP AND WRIST PAIN Time Seen by Provider: 11/12/19 10:56 Pain Intensity: 2 - Allergy/Home Medications Allergies/Adverse Reactions: Allergies Allergy/AdvReac Type Severity Reaction Status Date / Time Penicillins Allergy Severe Constipatio Verified 11/12/19 11:00 n levofloxacin [From Levaquin] Allergy Itching Verified 11/12/19 11:00 avoids ibuprofen Allergy HX CKD Uncoded 11/12/19 11:04 Home Medications: Home Medications Acetaminophen [Acetaminophen Extra Strength] 1,000 mg PO Q6H PRN 11/12/19 [ History Confirmed 11/12/19] PMH/Surg Hx/FS Hx/Imm Hx - Additional Past Medical History Additional PMH: Hypokalemia, CKD Stage3, RBBB, HTN, Aortic Valve disorder, Aneurysm thoracic aorta, KIMBERLEY migraines and osteoarthritis of hips. Previously Healthy: Yes - Surgical History Surgical History: Yes Surgery Procedure, Year, and Place: hernia repair 1956. 2013 LEFT SHOULDER ROTATOR REPAIR. 02/2016 [facility],RIGHT STENT [facility]-removed - Family History Known Family History: Positive: None, Cardiac Disease, Hypertension Negative: Diabetes - Social History Alcohol Use: Rare Substance Use Type: None Smoking Status (MU): Former Smoker Type: Cigarettes Have You Smoked in the Last Year: No When Did the Patient Quit Smoking/Using Tobacco: 1998 - Immunization History Most Recent Influenza Vaccination: NOT UTD Most Recent Pneumonia Vaccination: Review of Systems All Other Systems Reviewed And Are Negative: Yes Constitutional: Positive: Negative Skin: Positive: Negative Eyes: Positive: Negative, Other - no pain around temples. ENT: Positive: Negative Respiratory: Positive: Negative Cardiovascular: Positive: Negative Gastrointestinal: Positive: Negative Genitourinary: Positive: Negative Motor: Positive: Other - decreased rom due to joint pains. Musculoskeletal: Positive: Arthralgia - bilateral hips, right shoulder and right wrist. Neurological: Positive: Negative Psychological: Positive: Negative Is Patient Immunocompromised?: No Physical Exam Triage Information Reviewed: Yes Appearance: Well-Appearing, Other: - pain when getting up from the sitting position. Needs to push up with his arms to stand from sitting. Vital Signs: Initial Vital Signs Temp 97.6 F 11/12/19 10:45 Pulse 82 11/12/19 10:45 Resp 18 11/12/19 10:45 BP 105/59 11/12/19 10:45 Pulse Ox 96 11/12/19 10:45 Vital Signs Reviewed: Yes Eye Exam: Normal ENT Exam: Normal, Other - non-tender over temporal arteries bilat. Neck: Positive: Supple, Nontender, No Lymphadenopathy Respiratory: Positive: Lungs clear, Normal breath sounds, No respiratory distress. Negative: Crackles, Rhonchi, Wheezing Cardiovascular: Positive: RRR, Pulses Normal, Murmur:Sys:Grade _?_/ - III Abdomen Description: Positive: Nontender, Soft Musculoskeletal: Positive: ROM Intact, Strength Limited @ - hips, Other: - Able to abduct right shoulder to 45 degrees. Neurological Exam: Normal Psychological Exam: Normal Skin Exam: Normal Course/Dx - Course Course Of Treatment: Given significant response to Medrol Dose pk, PMR or other inflammatory arthritis is high suspicion. He underwent Rheumatologic lab testing recently with his PCP which he states was negative. Since x-rays were recently performed , we mutually agreed further imaging was not warranted at this time. I am ordering repeat ESR and CBC today along with recommendation for referral to a Group Account Director. Prednisone 10mg daily, 5 day supply was prescribed today with PCP follow-up this week. - Diagnoses Provider Diagnosis: Polyarthritis Discharge ED - Sign-Out/Discharge Documenting (check all that apply): Patient Departure All imaging exams completed and their final reports reviewed: No Studies - Discharge Plan Condition: Stable Disposition: HOME Prescriptions: predniSONE 10 mg TAB [Deltasone 10 MG TAB*] 10 mg PO DAILY #5 tab Patient Education Materials: Arthralgia (ED) Referrals: Pam Lindsey PA [Primary Care Provider] - Additional Instructions: Take the medication Prednisone 10mg daily with food. Follow-up with your Primary Care Physician this week for further instructions. A Rheumatology consultation is recommended. - Billing Disposition and Condition Condition: STABLE Disposition: Home
[2019-11-12 13:22] LABS: ABS Eosinophils 0.2 10^3/ul (0-0.6); ABS Lymphocytes 1.3 10^3/ul (1.0-4.8); ABS Monocytes 1.4 10^3/ul (0-0.8); Eosinophil % 1.6 %; Hematocrit 44 % (42-52); Mean Corpuscular HGB Conc 34 g/dL (31-36); Mean Corpuscular Hemoglobin 31 pg (27-31); Mean Corpuscular Volume 93 fL (80-94); Mean Platelet Volume 9.4 fL (7.4-10.4); Platelet Count 214 10^3/uL (150-450); Red Cell Distribution Width 13 % (10-15)
[2019-11-12 14:34] LABS: Erythrocyte Sed Rate 54 mm/Hr (0-19)
--- NOTE | 2019-11-13 07:04 | UC ---
- Progress Note Progress Note: please notify patient that both his WBC and ESR are elevated I any unsure of the significance of this in the face of his presenting complaint He should follow up as directed with his PCP Course/Dx - Diagnoses Provider Diagnoses: Polyarthritis Discharge ED - Sign-Out/Discharge Documenting (check all that apply): Post-Discharge Follow Up All imaging exams completed and their final reports reviewed: No Studies - Discharge Plan Condition: Stable Disposition: HOME Prescriptions: predniSONE 10 mg TAB [Deltasone 10 MG TAB*] 10 mg PO DAILY #5 tab Patient Education Materials: Arthralgia (ED) Referrals: Pam Lindsey PA [Primary Care Provider] - Additional Instructions: Take the medication Prednisone 10mg daily with food. Follow-up with your Primary Care Physician this week for further instructions. A Rheumatology consultation is recommended. - Billing Disposition and Condition Condition: STABLE Disposition: Home
== END 2019-11-12 11:58 | disposition home or self-care (01) ==
LOC: UCCORT 09:55
DX: M13.0 Polyarthritis, unspecified (principal); I12.9 Hypertensive chronic kidney disease with stage 1 through stage 4 chronic kidney disease, or unspecified chronic kidney disease; N18.3 Chronic kidney disease, stage 3 (moderate); Z87.891 Personal history of nicotine dependence; Z88.0 Allergy status to penicillin; Z88.6 Allergy status to analgesic agent; Z88.1 Allergy status to other antibiotic agents
CPT/HCPCS: 36415; 85025; 85652; 99212; G0463